=== PATIENT | female | born 1955 | race African-American/Black ===

== ENCOUNTER 2018-05-27 09:36 | Outpatient (CLI) | payer MEDICARE | END 2018-05-27 09:37 | disposition home or self-care (01) | LOC: BICMAMMO 09:36 | PROVIDERS: ATTEND Family Medicine | DX: Z12.31 Encounter for screening mammogram for malignant neoplasm of breast (principal); N63.10 Unspecified lump in the right breast, unspecified quadrant; Z98.890 Other specified postprocedural states | CPT/HCPCS: 77063; 77067 ==

== ENCOUNTER 2019-06-07 10:59 | Outpatient (CLI) | payer MEDICARE ==
--- NOTE | 2019-06-07 11:34 | MMO ---
Bilateral MAMMO Bilat Screen [facility]. CLINICAL HISTORY: Patient is 63 years old and is seen for screening. The patient has no family history of breast cancer. The patient has no personal history of cancer. The patient has a history of right needle biopsy more than 10 years ago - benign. VIEWS: The views performed were: bilateral craniocaudal with tomosynthesis and bilateral mediolateral oblique with tomosynthesis. FILMS COMPARED: The present examination has been compared to prior imaging studies performed at [facility] on 07/12/2013, 07/18/2014, 07/18/2015 and 05/27/2018. This study has been interpreted with the assistance of computer-aided detection. MAMMOGRAM FINDINGS: There are scattered fibroglandular densities. There is a stable mass with obscured margins and associated biopsy clip seen in the lower-inner region of the right breast. There are no suspicious masses, suspicious calcifications, or new areas of architectural distortion. IMPRESSION: THERE IS NO MAMMOGRAPHIC EVIDENCE OF MALIGNANCY. A ROUTINE FOLLOW-UP MAMMOGRAM IN 1 YEAR IS RECOMMENDED. THE RESULTS OF THIS EXAM WERE SENT TO THE PATIENT. ACR BI-RADS Category 2 - Benign finding MAMMOGRAPHY NOTE: 1. A negative mammogram report should not delay a biopsy if a dominant of clinically suspicious mass is present. 2. Approximately 10% to 15% of breast cancers are not detected by mammography. 3. Adenosis and dense breasts may obscure an underlying neoplasm. Reported by: BETSEY COOL MD Electonically Signed: [id number]
== END 2019-06-07 11:00 | disposition home or self-care (01) ==
LOC: BICMAMMO 10:59
PROVIDERS: ATTEND Family Medicine
DX: Z12.31 Encounter for screening mammogram for malignant neoplasm of breast (principal); Z91.89 Other specified personal risk factors, not elsewhere classified
CPT/HCPCS: 77063; 77067

== ENCOUNTER 2019-10-21 08:19 | Outpatient (CLI) | payer MEDICARE ==
--- NOTE | 2019-10-21 08:54 | ULT ---
ULTRASOUND ABDOMEN: HISTORY: Abdominal pain FINDINGS: The gallbladder is not visualized. The liver, spleen, pancreas, right kidney and visualized portions of the left kidney aorta and IVC appear normal. The common duct measures 4mm in diameter. No free fluid is seen. IMPRESSION: Nonvisualization of the gallbladder. No significant abnormalities are otherwise seen.
== END 2019-10-21 08:20 | disposition home or self-care (01) ==
LOC: BICULT 08:19
PROVIDERS: ATTEND Family Medicine
DX: R10.84 Generalized abdominal pain (principal)
CPT/HCPCS: 93975

== ENCOUNTER 2020-06-08 08:11 | Outpatient (CLI) | payer MEDICARE | END 2020-06-08 08:12 | disposition home or self-care (01) | LOC: BICMAMMO 08:11 | PROVIDERS: ATTEND Family Medicine | DX: Z12.31 Encounter for screening mammogram for malignant neoplasm of breast (principal) | CPT/HCPCS: 77063; 77067 ==

== ENCOUNTER 2021-05-07 10:20 | Outpatient (CLI) | payer MEDICARE | END 2021-05-07 10:21 | disposition home or self-care (01) | LOC: BICRAD 10:20 | PROVIDERS: ATTEND Family Medicine | DX: M19.90 Unspecified osteoarthritis, unspecified site (principal) ==

== ENCOUNTER 2022-01-09 14:24 | Inpatient (IN) | payer OTHER ==
[2022-01-09 15:04] LABS: #Basophils 0.1 thou/uL (0.0-0.2); #Eosinphils 0.1 thou/uL (0.0-0.7); #Lymphocytes 1.7 thou/uL (1.20-3.40); #Monocytes 0.5 thou/uL (0.11-0.59); #Neutrophils 5.5 thou/uL (1.40-6.50); %Basophils 0.7 % (0.0-1.0); %Eosinophils 1.6 % (0.0-10.0); %Lymphocytes 21.3 % (21.0-51.0); %Monocytes 6.3 % (0.0-10.0); %Neutrophils 70.1 % (42.0-75.0); Hemoglobin 12.8 g/dL (12.0-16.0); Mean Corpuscular HGB CONC 34.5 g/dL (32.0-36.0); Mean Corpuscular Hemoglobin 32.2 pg (27.0-31.0); Mean Corpuscular Volume 93.4 fL (78.0-98.0); Mean Platelet Volume 9.7 fL (7.4-10.4); Platelet Count 296 thou/uL (130-400); RBC Distribution Width 13.6 % (11.5-14.5); Red Blood Cell (RBC) Count 3.98 mill/uL (4.20-5.40); White Blood Cell (WBC) Count 7.9 thou/uL (4.8-10.8)
[2022-01-09 15:25] LABS: ALT (SGPT) 14 U/L (8-55); AST (SGOT) 25 U/L (5-34); Albumin 4.9 g/dL (3.4-4.8); Alkaline Phosphatase 90 U/L (40-110); Anion Gap 31 mmol/L (10-20); BUN (Urea Nitrogen) 123 mg/dL (9.8-20.1); Bilirubin, Total 0.4 mg/dL (0.2-1.2); Calc. Creatinine Clearance 0 mL/min (70-130); Calcium 9.7 mg/dL (7.8-10.44); Carbon Dioxide 16 mmol/L (23-31); Chloride 96 mmol/L (98-107); Estimated GFR 3; Globulin 3.8 g/dL (2.4-3.5); Glucose 81 mg/dL (80-115); Magnesium 2.8 mg/dL (1.6-2.6); Protein, Total 8.7 g/dL (5.8-8.1); Sodium 140 mmol/L (136-145)
[2022-01-09 15:29] LABS: Potassium 2.7 mmol/L (3.5-5.1)
[2022-01-09] MEDS ORDERED: Potassium Chloride 20 MEQ TAB ONE (16:24)
[2022-01-09] MEDS ORDERED: Ondansetron ODT 4 MG TAB PO PRN (17:31)
[2022-01-09 17:43] LABS: CKMB 4.3 ng/mL (0-6.6)
[2022-01-09 18:29] LABS: Phosphorus 9.4 mg/dL (2.3-4.7)
[2022-01-09] MEDS ORDERED: Sodium Chloride 0.9% 1,000 ML IV SCH (19:15)
[2022-01-09 19:23] LABS: SARS-CoV-2 NAA Rapid Test Not Detected (NotDetected)
[2022-01-09 20:10] LABS: Anion Gap 31 mmol/L (10-20); BUN (Urea Nitrogen) 120 mg/dL (9.8-20.1); Calc. Creatinine Clearance 0 mL/min (70-130); Calcium 8.6 mg/dL (7.8-10.44); Carbon Dioxide 11 mmol/L (23-31); Chloride 102 mmol/L (98-107); Estimated GFR 4; Glucose 84 mg/dL (80-115); Sodium 141 mmol/L (136-145)
[2022-01-09 20:16] LABS: Troponin I 0.098 ng/mL (< 0.028)
[2022-01-09 20:40] LABS: Potassium 2.8 mmol/L (3.5-5.1)
[2022-01-09] MEDS ORDERED: Metoprolol Tartrate 50 MG TAB PO SCH (21:00)
[2022-01-09] MEDS ORDERED: Potassium Chloride 20 MEQ TAB PO SCH (21:30)
[2022-01-09] MEDS ORDERED: Metoprolol Tartrate 50 MG TAB ONE (22:15)
[2022-01-09 22:59] LABS: Troponin I 0.103 ng/mL (< 0.028)
[2022-01-09] MEDS: Heparin 5,000 UNITS/ML VIAL SC SCH (23:09)
[2022-01-09] MEDS: Sodium Chloride 0.9% 1,000 ML IV SCH (23:10)
[2022-01-10 05:20] LABS: Phosphorus 8.1 mg/dL (2.3-4.7)
[2022-01-10 05:38] LABS: Anion Gap 29 mmol/L (10-20); BUN (Urea Nitrogen) 122 mg/dL (9.8-20.1); Calc. Creatinine Clearance 5 mL/min (70-130); Calcium 8.5 mg/dL (7.8-10.44); Chloride 108 mmol/L (98-107); Estimated GFR 4; Magnesium 2.7 mg/dL (1.6-2.6); Potassium 3.5 mmol/L (3.5-5.1); Sodium 142 mmol/L (136-145)
[2022-01-10 05:42] LABS: Carbon Dioxide 9 mmol/L (23-31); Glucose 59 mg/dL (80-115)
[2022-01-10] MEDS ORDERED: Sevelamer Carbonate 800 MG TAB PO SCH (08:00)
[2022-01-10] MEDS ORDERED: NIFEdipine XL 90 MG TAB PO SCH (09:00)
[2022-01-10] MEDS ORDERED: Potassium Chloride 20 MEQ TAB ONE (09:08)
[2022-01-10] MEDS: Heparin 5,000 UNITS/ML VIAL SC SCH ×3 (09:10→20:57)
[2022-01-10] MEDS: Sevelamer Carbonate 800 MG TAB PO SCH ×3 (09:19→16:37)
[2022-01-10] MEDS: Sodium Chloride 0.9% 1,000 ML IV SCH (09:29)
[2022-01-10] MEDS ORDERED: Sodium Bicarbonate 150 MEQ in Dextrose 5% in Water 1,000 ML IV SCH (10:00)
[2022-01-10 12:54] LABS: Bacteria/HPF 3+ HPF (None Seen); Bilirubin Negative (Negative); Blood, Urine Trace (Negative); Clarity Clear (Clear); Glucose, Urine (Dipstick) Normal (Negative); Ketone, Urine Negative (Negative); Leukocyte 25 Leu/uL (Negative); Nitrite Negative (Negative); Protein, Urine (Dipstick) 50 mg/dL (Neg-Trace); RBC/HPF 0-3 HPF (0-3); Specific Gravity, Urine 1.015 (1.002-1.036); Urobilinogen Normal mg/dL (Less than 2); pH, Urine 5.5 (5.0-9.0)
[2022-01-10] MEDS ORDERED: Ondansetron ODT 4 MG TAB ONE (13:04)
[2022-01-10 14:29] LABS: Anion Gap 27 mmol/L (10-20); BUN (Urea Nitrogen) 122 mg/dL (9.8-20.1); Calc. Creatinine Clearance 5 mL/min (70-130); Calcium 9.2 mg/dL (7.8-10.44); Carbon Dioxide 16 mmol/L (23-31); Chloride 105 mmol/L (98-107); Estimated GFR 5; Glucose 88 mg/dL (80-115); Potassium 3.1 mmol/L (3.5-5.1); Sodium 145 mmol/L (136-145)
[2022-01-10] MEDS: hydrALAZINE 20 MG/ML VIAL SLOW IVP PRN (14:45)
[2022-01-10] MEDS ORDERED: FLU VACC QS2022-23(6MOS UP)/PF 60 MCG/0.5 ML SYRINGE IM ONE (15:30)
[2022-01-10] MEDS: Potassium Chloride 20 MEQ TAB PO SCH (20:59)
[2022-01-11 04:44] LABS: Lactic Acid 0.6 mmol/L (0.5-2.2)
[2022-01-11] MEDS: Sevelamer Carbonate 800 MG TAB PO SCH ×3 (07:39→16:25)
[2022-01-11] MEDS: NIFEdipine XL 90 MG TAB PO SCH (07:39)
[2022-01-11] MEDS: Calcitriol 0.25 MCG CAP PO SCH (07:39)
[2022-01-11] MEDS: Potassium Chloride 20 MEQ TAB PO SCH ×2 (07:40→16:26)
[2022-01-11] MEDS: Heparin 5,000 UNITS/ML VIAL SC SCH ×3 (07:41→21:02)
[2022-01-11] MEDS: Ondansetron PF 4 MG/2 ML Vial IVP PRN (07:45)
[2022-01-11 08:52] LABS: BUN (Urea Nitrogen) 107 mg/dL (9.8-20.1); Calc. Creatinine Clearance 8 mL/min (70-130); Calcium 9.1 mg/dL (7.8-10.44); Carbon Dioxide 20 mmol/L (23-31); Chloride 107 mmol/L (98-107); Estimated GFR 8; Glucose 84 mg/dL (80-115); Magnesium 2.4 mg/dL (1.6-2.6); Phosphorus 3.7 mg/dL (2.3-4.7); Potassium 2.6 mmol/L (3.5-5.1); Sodium 145 mmol/L (136-145)
[2022-01-11 08:55] LABS: Anion Gap 21 mmol/L (10-20)
[2022-01-11] MEDS ORDERED: Potassium Chloride 20 MEQ TAB PO SCH (09:15)
[2022-01-11] MEDS: Metoprolol Tartrate 50 MG TAB PO SCH ×2 (09:24→21:10)
[2022-01-11] MEDS: hydrALAZINE 20 MG/ML VIAL SLOW IVP PRN (11:32)
[2022-01-11 11:57] VITALS: BMI 17.9
[2022-01-11 17:21] LABS: Anion Gap 17 mmol/L (10-20); BUN (Urea Nitrogen) 88 mg/dL (9.8-20.1); Calc. Creatinine Clearance 11 mL/min (70-130); Calcium 9.4 mg/dL (7.8-10.44); Carbon Dioxide 22 mmol/L (23-31); Chloride 107 mmol/L (98-107); Estimated GFR 11; Glucose 99 mg/dL (80-115); Potassium 3.4 mmol/L (3.5-5.1); Sodium 143 mmol/L (136-145)
[2022-01-12 04:45] LABS: Anion Gap 17 mmol/L (10-20); BUN (Urea Nitrogen) 77 mg/dL (9.8-20.1); Calc. Creatinine Clearance 14 mL/min (70-130); Calcium 9.5 mg/dL (7.8-10.44); Carbon Dioxide 20 mmol/L (23-31); Chloride 111 mmol/L (98-107); Estimated GFR 16; Glucose 100 mg/dL (80-115); Magnesium 2.2 mg/dL (1.6-2.6); Potassium 3.8 mmol/L (3.5-5.1); Sodium 144 mmol/L (136-145)
[2022-01-12 04:56] LABS: Phosphorus 2.3 mg/dL (2.3-4.7)
[2022-01-12] MEDS: Potassium Chloride 20 MEQ TAB PO SCH ×2 (07:51→16:14)
[2022-01-12] MEDS: Ondansetron PF 4 MG/2 ML Vial IVP PRN (07:51)
[2022-01-12] MEDS: Sevelamer Carbonate 800 MG TAB PO SCH ×3 (07:52→16:13)
[2022-01-12] MEDS: Metoprolol Tartrate 50 MG TAB PO SCH (07:52)
[2022-01-12] MEDS: Calcitriol 0.25 MCG CAP PO SCH (07:52)
[2022-01-12] MEDS: NIFEdipine XL 90 MG TAB PO SCH (07:53)
[2022-01-12] MEDS: Heparin 5,000 UNITS/ML VIAL SC SCH ×3 (07:55→19:49)
[2022-01-12] MEDS: Carvedilol 6.25 MG TAB PO SCH (16:15)
[2022-01-12] MEDS ORDERED: Atorvastatin Calcium 20 MG TAB PO SCH (21:00)
[2022-01-13] MEDS: Calcitriol 0.25 MCG CAP PO SCH (08:17)
[2022-01-13] MEDS: Carvedilol 6.25 MG TAB PO SCH (08:17)
[2022-01-13] MEDS: Heparin 5,000 UNITS/ML VIAL SC SCH (08:17)
[2022-01-13] MEDS: Potassium Chloride 20 MEQ TAB PO SCH (08:17)
[2022-01-13] MEDS: NIFEdipine XL 90 MG TAB PO SCH (08:18)
[2022-01-13] MEDS: Sevelamer Carbonate 800 MG TAB PO SCH (08:18)
[2022-01-13] MEDS: Ondansetron PF 4 MG/2 ML Vial IVP PRN (08:21)
[2022-01-13 08:33] VITALS: TEMP 98.7
[2022-01-13 08:59] VITALS: BP 133/73
[2022-01-13 15:01] LABS: ANA Symphony (Qualitative) Negative (Negative); ANA Symphony (Quantitative) 0.3 Ratio (< 0.7 Negative); dsDNA IgG Antibody 0.7 IU/mL (<10 Negative)
== END 2022-01-13 11:11 | disposition home or self-care (01) | DRG 981 ==
LOC: ERS 14:24 → ERHOLD 16:33 → 2NO 01-10 14:18 → T4-A 01-12 16:37
PROVIDERS: ADMIT Family Medicine; ATTEND Family Medicine
PROC: 09C Ear, Nose, Sinus, Extirpation (ICD-10-PCS; principal; 2022-01-09)
DX: N17.9 Acute kidney failure, unspecified (principal); E43 Unspecified severe protein-calorie malnutrition; R64 Cachexia; Z68.1 Body mass index [BMI] 19.9 or less, adult; E87.20 Acidosis, unspecified; E87.6 Hypokalemia; N25.81 Secondary hyperparathyroidism of renal origin; Z66 Do not resuscitate; N18.30 Chronic kidney disease, stage 3 unspecified; E16.2 Hypoglycemia, unspecified; K52.9 Noninfective gastroenteritis and colitis, unspecified; E83.39 Other disorders of phosphorus metabolism; I12.9 Hypertensive chronic kidney disease with stage 1 through stage 4 chronic kidney disease, or unspecified chronic kidney disease; T16.2XXA Foreign body in left ear, initial encounter; X58.XXXA Exposure to other specified factors, initial encounter; Z20.822 Contact with and (suspected) exposure to COVID-19; Z86.73 Personal history of transient ischemic attack (TIA), and cerebral infarction without residual deficits; Z79.899 Other long term (current) drug therapy; Y92.9 Unspecified place or not applicable
CPT/HCPCS: 36415; 36416; 71046; 76770; 80048; 80053; 81001; 82150; 82306; 82436; 82550; 82553; 83036; 83605; 83690; 83735; 83880; 83970; 84100; 84443; 84484; 85025; 86038; 86225; 93005; 93975; 94760; J0360; J1642; J1644; J2405; J7050; J7070; Q0162; U0002

== ENCOUNTER 2022-01-21 08:33 | Outpatient (CLI) | payer OTHER ==
[2022-01-21] MEDS ORDERED: Iopamidol 370 76% 100 ML VIAL ONE (12:12)
== END 2022-01-21 08:34 | disposition home or self-care (01) ==
LOC: CT 08:33
PROVIDERS: ATTEND Family Medicine
DX: R07.9 Chest pain, unspecified (principal); R05.9 Cough, unspecified; R63.4 Abnormal weight loss; N28.9 Disorder of kidney and ureter, unspecified
CPT/HCPCS: 71260; 74177; 82565; Q9967

== ENCOUNTER 2023-09-09 14:34 | Outpatient (CLI) | payer MEDICARE | END 2023-09-09 14:35 | disposition home or self-care (01) | LOC: BICMAMMO 14:34 | PROVIDERS: ATTEND Family Medicine | DX: Z12.31 Encounter for screening mammogram for malignant neoplasm of breast (principal); Z91.89 Other specified personal risk factors, not elsewhere classified | CPT/HCPCS: 77063; 77067 ==